=== PATIENT | male | born 1990 | race Caucasian/White ===

== ENCOUNTER 2024-02-04 10:31 | Emergency (ER) | payer BC ==
[~2024-02-04] VITALS: Ht 180.3 cm; Wt 81.6 kg
[2024-02-04 11:52] LABS: BASO % 0.5 % (0.0-1.0); EOS # 0.1 10*3/uL (0.0-0.4); EOS % 1.8 % (1.0-4.0); HEMATOCRIT 41.6 % (42.0-52.0); LYMPH # 1.6 10*3/uL (1.3-4.4); LYMPH % 25.4 % (27.0-41.0); MEAN CELL VOLUME 87.6 fl (80.0-94.0); MEAN CORPUSCULAR HGB 28.8 pg (27.0-31.0); MEAN CORPUSCULAR HGB CONC 32.9 g/dl (33.0-37.0); MEAN PLATELET VOLUME 9.1 fl (9.6-12.3); MONO # 0.5 10*3/uL (0.1-1.0); MONO % 7.6 % (3.0-9.0); NEUT % 64.5 % (47.0-73.0); PLATELET COUNT AUTOMATED 204 10*3/uL (130-400); RED BLOOD COUNT 4.75 10*6/uL (4.50-5.90); RED CELL DISTRI WIDTH 12.5 % (0-14.5); WHITE BLOOD COUNT 6.2 10*3/uL (4.8-10.8)
[2024-02-04 12:12] LABS: BUN 9 mg/dl (9-23); CHLORIDE 108 mmol/L (98-107); POTASSIUM 4.3 mmol/L (3.4-5.1)
[2024-02-04] MEDS ORDERED: CLINDAMYCIN HCL 300 MG CAPSULE PO ONE (13:15)
[2024-02-04] MEDS ORDERED: CLINDAMYCIN HC300 MG PO (13:17)
== END 2024-02-04 13:27 | disposition home or self-care (01) ==
LOC: ED 10:31
PROVIDERS: Internal Medicine
DX: L02.214 Cutaneous abscess of groin (principal)